=== PATIENT | male | born 1975 | race American Indian/Alaskan Native ===

== ENCOUNTER 2021-01-31 01:07 | Emergency (ER) | payer OTHER ==
[2021-01-31] MEDS ORDERED: traMADol 50 MG TAB PO ONE (06:49)
[2021-01-31] MEDS ORDERED: IBUPROFEN 800 MG TAB PO ONE (06:59)
[2021-01-31] MEDS ORDERED: ACETAMINOPHEN 500 MG TAB PO ONE (06:59)
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
[2021-01-31 09:25] VITALS: BP 140/90
== END 2021-01-31 09:24 | disposition home or self-care (01) ==
LOC: ED 01:07
DX: S16.1XXA Strain of muscle, fascia and tendon at neck level, initial encounter (principal); S20.219A Contusion of unspecified front wall of thorax, initial encounter; M25.511 Pain in right shoulder; F17.200 Nicotine dependence, unspecified, uncomplicated; Z98.890 Other specified postprocedural states; Z79.899 Other long term (current) drug therapy; V49.49XA Driver injured in collision with other motor vehicles in traffic accident, initial encounter; Y93.89 Activity, other specified; Y92.410 Unspecified street and highway as the place of occurrence of the external cause; Y99.8 Other external cause status
CPT/HCPCS: 72125